=== PATIENT | male | born 1960 | race African-American/Black ===

== ENCOUNTER 2019-05-08 12:14 | Emergency (ER) | payer OTHER, BC ==
[2019-05-08] MEDS ORDERED: MORPHINE SULFATE 10 MG/ML INJ IM ONE (12:37)
[2019-05-08] MEDS ORDERED: DIPH/PERTUSS(ACELL)/TETANUS VAC/PF 0.5 ML SYR (>=10YO) IM ONE (12:38)
--- NOTE | 2019-05-08 12:41 | ER Document Report ---
ED Medical Screen (RME) - General Stated Complaint: LEFT KNEE LACERATION Time Seen by Provider: 05/08/19 12:35 Primary Care Provider: SAGE NICHOLS MD [Primary Care Provider] - Follow up as needed Mode of Arrival: Medic Information source: Patient Notes: 58-year-old male patient presenting with laceration just proximal to the left knee. Patient has a large laceration measuring at least 8 cm, it is linear, there is no active bleeding noted. It is relatively deep. Patient is shaking, he is very nervous stating he feels like he is going to throw up. Patient was on a job site using a metal type of machinery when it slipped and cut his leg. His Tdap is not up-to-date. He does have a good palpable dorsalis pedis pulse and normal cap refill distal to injury. I have greeted and performed a rapid initial assessment of this patient. A comprehensive ED assessment and evaluation of the patient, analysis of test results and completion of the medical decision making process will be conducted by additional ED providers. I have specifically instructed the patient or family members with the patient to immediately return to any nursing staff should anything change in the patient's condition or with their chief complaint. This medical record was dictated with voice recognizing software. There may be grammatical, syntax errors that are unintended. - Related Data Allergies/Adverse Reactions: No Known Allergies Allergy (Verified 08/25/12 17:19) Past Medical History - Past Medical History Cardiac Medical History: Reports: Hx Hypertension - Immunizations Hx Diphtheria, Pertussis, Tetanus Vaccination: No Physical Exam - Vital signs Vitals: Temp Pulse Resp BP Pulse Ox 98.6 F 58 L 18 131/71 H 97 05/08/19 12:28 05/08/19 12:28 05/08/19 12:05/08/19 12:28 05/08/19 12:28 Course - Vital Signs Vital signs: Temp Pulse Resp BP Pulse Ox 98.6 F 58 L 18 131/71 H 97 05/08/19 12:28 05/08/19 12:28 05/08/19 12:28 05/08/19 12:28 05/08/19 12:28 Doctor's Discharge - Discharge Referrals: SAGE NICHOLS MD [Primary Care Provider] - Follow up as needed
--- NOTE | 2019-05-08 13:34 | RADIOLOGY REPORT (SQ) ---
EXAM DESCRIPTION: KNEE LEFT 2 VIEWS COMPLETED DATE/TIME: 05/08/2019 1:16 pm REASON FOR STUDY: laceration COMPARISON: None. NUMBER OF VIEWS: Two views. TECHNIQUE: AP and lateral views of the left knee were obtained. LIMITATIONS: None. FINDINGS: MINERALIZATION: Normal. BONES: No acute fracture, dislocation or osseous lesion. JOINT: Mild patellofemoral compartment osteophyte formation. There is no joint effusion. SOFT TISSUES: Swelling and subcutaneous emphysema superior to the patella. There is no retained radi opaque foreign body. OTHER: Incidental fabella P. IMPRESSION: Soft tissue swelling and subcutaneous emphysema superior to the patella. There is no as sociated osseous abnormality or radiopaque foreign body. TECHNICAL DOCUMENTATION: JOB ID: [id number] [employer]- All Rights Reserved Reading location - IP/workstation name: [email or web address]
[2019-05-08] MEDS ORDERED: LIDOCAINE 1% INJ-PF (10 MG/ML) 30 ML SDV INJ ONE (14:13)
--- NOTE | 2019-05-08 14:14 | ER Document Report ---
ED General - General Chief Complaint: Laceration Stated Complaint: LEFT KNEE LACERATION Time Seen by Provider: 05/08/19 12:35 Primary Care Provider: SAGE NICHOLS MD [Primary Care Provider] - Follow up in 1 week Mode of Arrival: Medic TRAVEL OUTSIDE OF THE [place] IN LAST 30 DAYS: No - HPI Notes: 58-year-old male to the emergency department with complaints of a laceration to his left thigh that occurred just prior to arrival. He states he cut his leg with a abel soft. He states that he immediately saw blood but the pain did not come until afterwards. He states he is not up-to-date on his tetanus. He states that he is able to bend the knee without any difficulty. - Related Data Allergies/Adverse Reactions: No Known Allergies Allergy (Verified 05/08/19 12:40) Past Medical History - General Information source: Patient - Social History Smoking Status: Never Smoker Chew tobacco use (# tins/day): No Frequency of alcohol use: None Drug Abuse: None Lives with: Family Family History: Reviewed & Not Pertinent Patient has suicidal ideation: No Patient has homicidal ideation: No - Past Medical History Cardiac Medical History: Reports: Hx Hypertension - Immunizations Hx Diphtheria, Pertussis, Tetanus Vaccination: No Review of Systems - Review of Systems Constitutional: denies: Chills, Fever EENT: No symptoms reported Cardiovascular: denies: Chest pain, Palpitations, Dyspnea, Syncope, Dizziness, Lightheaded Respiratory: denies: Cough, Short of breath Gastrointestinal: denies: Abdominal pain, Diarrhea, Nausea, Vomiting Genitourinary: No symptoms reported Musculoskeletal: See HPI, Other - thigh pain where saw lacerated the leg Skin: See HPI, Other - laceration to the left thigh Hematologic/Lymphatic: denies: No symptoms reported Neurological/Psychological: denies: No symptoms reported -: Yes All other systems reviewed and negative Physical Exam - Vital signs Vitals: Temp Pulse Resp BP Pulse Ox 98.6 F 58 L 18 131/71 H 97 05/08/19 12:28 05/08/19 12:28 05/08/19 12:28 05/08/19 12:28 05/08/19 12:28 Interpretation: Normal - General General appearance: Appears well, Alert In distress: None - HEENT Head: Normocephalic, Atraumatic Eyes: Normal Pupils: PERRL Neck: Normal, Supple - Respiratory Respiratory status: No respiratory distress Chest status: Nontender Breath sounds: Normal Chest palpation: Normal - Cardiovascular Rhythm: Regular Heart sounds: Normal auscultation Murmur: No - Abdominal Inspection: Normal Distension: No distension Bowel sounds: Normal Tenderness: Nontender Organomegaly: No organomegaly - Extremities Notes: to the left thigh just above the knee there is an 8 cm laceration from abel saw. this is a straight but deep wound. the wound goes through all of the adipose tissue down tot he muscle sheath. it does not involve the muscle. Patient is able to bend the left knee with some mild pain but there does not appear to be damage to the patellar ligament. the thigh is TTP where the laceration is and just surrounding it but the knee joint is nontender to palpation. non tender to palpation of the left hip and left ankle. cap refill is less than 2 sec. DP pulses intact and equal. - Neurological Neuro grossly intact: Yes Cognition: Normal Orientation: AAOx4 [place] Coma Scale Eye Opening: Spontaneous [place] Coma Scale Verbal: Oriented [place] Coma Scale Motor: Obeys Commands [place] Coma Scale Total: 15 Speech: Normal Cranial nerves: Normal Cerebellar coordination: Normal Motor strength normal: LUE, RUE, LLE, RLE Additional motor exam normals: Equal cardiac cath lab radiology technologist Sensory: Normal - Psychological Associated symptoms: Normal mood, Anxious - Skin Skin Temperature: Warm Skin Moisture: Dry Skin Color: Normal Skin irregularity: Laceration - See Extremitites for further discussion of laceration to the left thigh. Course - Re-evaluation Re-evalutation: Impression: Left thigh laceration, patient tolerated repair well. Will have him follow with PCP in one week for wound check and suture removal in [address] on prophylactic Abx. Updated tetanus. Patient and family agree with the plan. Gave strict return precautions -- return immediately if worsening pain, fevers, redness/streaking redness, purulent drainage from the wound. - Vital Signs Vital signs: Temp Pulse Resp BP Pulse Ox 98.7 F 65 16 110/56 L 98 05/08/19 17:00 05/08/19 17:00 05/08/19 17:00 05/08/19 17:00 05/08/19 17:00 Procedures - Laceration/Wound Repair Left Volar Thigh Wound length (cm): 8 Wound's Depth, Shape: Other - Through the adipose tissue but does not involve the muscle Laceration pre-procedure: Sterile PPE donned, Sterile drapes applied Anesthetic type: 1% Lidocaine Volume Anesthetic (mLs): 8 Wound explored: Clean, No foreign body removed Irrigated w/ Saline (mLs): 200 Wound Debrided: Minimal Wound Repaired With: Sutures Suture Size/Type: 3:0 Number of Sutures: 14 - 3 mattress and 11 simple interrupted Layer Closure?: No Post-procedure wound care: Sterile dressing applied, Other - Michael wrap and pressure dressing Post-procedure NV exam normal: Yes Complications: No Discharge - Discharge Clinical Impression: Laceration of left thigh Qualifiers: Encounter type: initial encounter Qualified Code(s): S71.112A - Laceration without foreign body, left thigh, initial encounter Condition: Stable Disposition: HOME, SELF-CARE Instructions: Laceration Care ([facility]), Prophylactic Antibiotic ([facility]), Tetanus Immunization Given ([facility]) Additional Instructions: KEEP WOUND CLEAN AND DRY. MAY CLEAN THE WOUND ONCE DAILY WITH WARM SOAPY WATER. PLEASE DO NOT SOAK THE STITCHES FOR THREE DAYS. ELEVATE THE LEG AND MINIMIZE STRESS ON THE WOUND. KEEP COVERED. COMPLETE ANTIBIOTICS. ONE WEEK WOUND CHECK WITH PRIMARY CARE. 14 DAY SUTURE REMOVAL. RETURN IMMEDIATELY IF YOUR SYMPTOMS WORSEN AT ALL WITH WORSENING PAIN, REDNESS, PURULENT DRAINAGE, OR FEVERS. Prescriptions: Cephalexin Monohydrate [Keflex 500 mg Capsule] 500 mg PO QID #40 capsule Oxycodone HCl/Acetaminophen [Percocet 5-325 mg Tablet] 1 tab PO Q6H PRN #10 tab PRN Reason: Forms: Return to Work Referrals: SAGE NICHOLS MD [Primary Care Provider] - Follow up in 1 week
[2019-05-08 17:06] VITALS: BP 110/56
== END 2019-05-08 17:03 | disposition home or self-care (01) ==
LOC: ER 12:14
DX: S71.112A Laceration without foreign body, left thigh, initial encounter (principal); W29.8XXA Contact with other powered hand tools and household machinery, initial encounter; Y99.0 Civilian activity done for income or pay; I10 Essential (primary) hypertension; Z23 Encounter for immunization
CPT/HCPCS: 99283; 96372; 90471; 73560; 90715; 12004; J2270